=== PATIENT | male | born 1940 | race Caucasian/White ===

== ENCOUNTER 2017-07-30 14:03 | Outpatient (CLI) | payer MEDICARE ==
[2017-07-30 15:10] LABS: Hematocrit 43.2 % (42.0-52.0); Mean Platelet Volume 6.4 fL (7.4-10.4); Red Blood Cell (RBC) Count 4.56 mill/uL (4.70-6.10); White Blood Cell (WBC) Count 6.2 thou/uL (4.8-10.8)
[2017-07-30 15:17] LABS: PTT 27.6 SEC (22.9-36.1); Prothrombin Time 14.2 SEC (12.0-14.7)
[2017-07-30 15:37] LABS: Anion Gap 15 mmol/L (10-20); BUN (Urea Nitrogen) 14 mg/dL (8.4-25.7); Calc. Creatinine Clearance 0 mL/min (70-130); Calcium 10.1 mg/dL (7.8-10.44); Carbon Dioxide 29 mmol/L (23-31); Chloride 104 mmol/L (98-107); Estimated GFR-MDRD 84
== END 2017-07-30 14:04 | disposition home or self-care (01) ==
LOC: LABBT 14:03
PROVIDERS: ATTEND Internal Medicine Cardiovascular Disease
DX: Z01.818 Encounter for other preprocedural examination (principal); I48.91 Unspecified atrial fibrillation
CPT/HCPCS: 80048; 85027; 85610; 85730; 88121

== ENCOUNTER 2017-07-31 09:02 | Day surgery (SDC) | payer MEDICARE ==
[2017-07-30 14:15] VITALS: BMI 37.0
[2017-07-31] MEDS ORDERED: Propofol 1,000 MG/100 ML VIAL IV ONE (09:39)
[2017-07-31] MEDS ORDERED: Propofol 200 MG/20 ML VIAL ONE (09:47)
[2017-07-31] MEDS ORDERED: Atropine Sulfate 1 mg/10 ml Syringe ONE (09:59)
--- NOTE | 2017-07-31 14:07 | OP ---
DATE OF PROCEDURE: 07/31/2017 CARDIOVERSION REPORT REFERRING PHYSICIAN: Wild Choudhury MD REASON FOR PROCEDURE: Mr. Vitale is a 76-year-old man with history of bladder cancer, history of i nferior scar on nuclear stress test, mild reduced LVEF, diabetes, hyperlipidemia. He has persistent atrial fibrillation. He was started on amiodarone and on chronic Eliquis. The patient is here for cardioversion. PROCEDURE: The patient received propofol per anesthesia specialist. After adequate level of sedati on is achieved, 150 joules synchronized shock promptly converted the patient back to sinus rhythm. CONCLUSION: Successful cardioversion. PLAN: Continue Eliquis and amiodarone and observe symptoms. If symptomatic recurrence or weaning f rom amiodarone is desired, consider pulmonary venous isolation procedure.
--- NOTE | 2017-08-01 06:23 | EKG ---
Test Reason : POST CARDIOVERSION Blood Pressure : / mmHG Vent. Rate : 036 BPM Atrial Rate : 036 BPM P-R Int : 000 ms QRS Dur : 110 ms QT Int : 414 ms P-R-T Axes : 000 -63 -31 degrees QTc Int : 320 ms Atrial fibrillation with slow ventricular response Left anterior fascicular block Cannot rule out Inferior infarct (masked by fascicular block?) , age undetermined Abnormal ECG When compared with ECG of 17-APR-2017 12:58, Atrial fibrillation has replaced Atrial flutter Vent. rate has decreased BY 30 BPM Nonspecific T wave abnormality now evident in Inferior leads Nonspecific T wave abnormality now evident in Anterolateral leads QT has shortened Confirmed by ELVIN MCCORMICK ([id number]) on 08/01/2017 6:23:28 AM Referred By: ROOPA Confirmed By:ELVIN MCCORMICK
--- NOTE | 2017-08-01 06:23 | EKG ---
Test Reason : POST CARDIOVERSION Blood Pressure : / mmHG Vent. Rate : 068 BPM Atrial Rate : 068 BPM P-R Int : 238 ms QRS Dur : 110 ms QT Int : 446 ms P-R-T Axes : 031 -64 052 degrees QTc Int : 474 ms Sinus rhythm with 1st degree A-V block Questionable interruption of tracing V4, V5, V6, and rhythm leads V1, II, V3, vs Pause? Left anterior fascicular block Abnormal ECG When compared with ECG of 31-JUL-2017 09:59, (Unconfirmed) Sinus rhythm has replaced Atrial fibrillation Vent. rate has increased BY 32 BPM Nonspecific T wave abnormality no longer evident in Inferior leads Nonspecific T wave abnormality, improved in Anterolateral leads QT has lengthened Confirmed by ELVIN MCCORMICK ([id number]) on 08/01/2017 6:22:46 AM Referred By: ROOPA Confirmed By:ELVIN MCCORMICK
== END 2017-07-31 13:45 | disposition home or self-care (01) ==
LOC: CCL 09:02
PROVIDERS: ATTEND Internal Medicine Cardiovascular Disease
DX: I48.1 Persistent atrial fibrillation (principal); E11.9 Type 2 diabetes mellitus without complications; E78.5 Hyperlipidemia, unspecified; M10.9 Gout, unspecified; I51.9 Heart disease, unspecified; M54.9 Dorsalgia, unspecified; G89.29 Other chronic pain; Z79.84 Long term (current) use of oral hypoglycemic drugs; Z79.01 Long term (current) use of anticoagulants; Z79.899 Other long term (current) drug therapy; Z88.2 Allergy status to sulfonamides; Z88.8 Allergy status to other drugs, medicaments and biological substances; Z98.42 Cataract extraction status, left eye; Z98.41 Cataract extraction status, right eye; Z85.51 Personal history of malignant neoplasm of bladder
CPT/HCPCS: 92960; 93005; 93010; J0461; J2704

== ENCOUNTER 2018-04-21 09:31 | Outpatient (CLI) | payer MEDICARE, OTHER ==
[2018-04-21] MEDS ORDERED: ISOVUE-370 76%-LOCM 1 ML ONE (13:09)
== END 2018-04-21 09:32 | disposition home or self-care (01) ==
LOC: BICCT 09:31
PROVIDERS: ATTEND Urology
DX: C67.4 Malignant neoplasm of posterior wall of bladder (principal); I48.91 Unspecified atrial fibrillation; R91.1 Solitary pulmonary nodule
CPT/HCPCS: 74178

== ENCOUNTER 2018-09-09 09:16 | Outpatient (CLI) | payer MEDICARE ==
--- NOTE | 2018-09-09 11:20 | CT ---
CT VIEW CHEST WITHOUT CONTRAST: HISTORY: Nodule. COMPARISON: CT 04/21/2018. FINDINGS: There are extensive airspace opacities throughout the upper lobes. Some of these are ground-glass an d some of these are part solid. There are innumerable part solid and ground-glass nodules in the low er lobes. There is bronchial wall thickening. Involvement predominantly involves the right lung, somewhat greater than the left lung, although ther e is involvement throughout the left lung. The previously described small nodule in the right lung base has increased in size measuring approxim ately 8 mm, previously sub-4 mm. Multiple old left-sided rib fractures. No acute suspicious lytic or blastic lesion. IMPRESSION: 1. Marked increase in nodules throughout the lungs which are part solid with peripheral ground-glass concerning for hemorrhagic metastatic disease. Nodule in the right lung base has increased in size measuring 9 mm, previously 4 mm. The previously described 9 mm nodule in the right lung base is not as well defined due to the extensive ground-glass opacification of the lower lobe. 2. A normal hypodense mass in the left lobe of the thyroid for which a nonemergent ultrasound is rec ommended. 3. Mildly prominent perihilar and paratracheal lymph nodes may be metastatic in nature. PET CT may be beneficial. 4. If the patient the patient is currently on chemotherapy, chemotherapy-induced interstitial pneumo nitis is a possibility of the lung findings. Hypersensitivity pneumonitis is also within the differen tial although felt less likely. POS: [facility]
== END 2018-09-09 09:17 | disposition home or self-care (01) ==
LOC: BICCT 09:16
PROVIDERS: ATTEND Internal Medicine Critical Care Medicine
DX: R91.1 Solitary pulmonary nodule (principal); R91.8 Other nonspecific abnormal finding of lung field; E07.9 Disorder of thyroid, unspecified; C67.4 Malignant neoplasm of posterior wall of bladder; R31.0 Gross hematuria; I48.91 Unspecified atrial fibrillation
CPT/HCPCS: 36415; 71250; 81001; 82565; 87086

== ENCOUNTER 2018-09-15 13:50 | Outpatient (CLI) | payer MEDICARE ==
[~2018-09-15 13:50] MED LIST: ISOVUE-370 76%-LOCM 1 ML ONE
--- NOTE | 2018-09-15 16:37 | CT ---
CT ABDOMEN WITH AND WITHOUT CONTRAST PELVIC CT WITH AND WITHOUT CONTRAST 09/15/18 HISTORY: Hematuria. Bladder cancer. COMPARISON: 04/21/18, 02/24/17. FINDINGS: ABDOMEN CT: Multiple ground glass nodules and additional parenchymal opacities in the visualized lung bases. Refe r to chest CT from 09/09/18 for further detail. Heart size is normal. There are coronary artery calcifications. The visualized aorta has a normal sue iber. No periaortic fat stranding. Liver, spleen, pancreas, and right adrenal glands are unremarkable. Calcification of the right adrena l gland likely due to remote insult. Redemonstration of nodule associated with the left adrenal gland , measuring 1.9 cm with an attenuation coefficient of 19 Hounsfield units. The lesion is indeterminat e. No gastrohepatic, retrocrural or periportal lymphadenopathy. No mesenteric mass, lymphadenopathy, free air or free fluid. Left kidney is surgically absent. Extra-renal pelvis is noted on the right side. No evidence of a rig ht sided obstructive uropathy. Subcentimeter hypodensity in the right renal cortex cannot be further characterized. There is appropriate enhancement of the right kidney. No evidence of an enhancing liss d mass. There is appropriate excretion into a normal appearing intra and extrarenal collecting system . Limited evaluation of the alimentary canal by the lack of oral contrast. No evidence of bowel obstruc tion. Ileocecal junction is normal. Scattered fecal material in a nondistended, nondilated colon. occ asional diverticulum. No diverticulitis. CT PELVIS: Contrast opacifies the dependent portion of the urinary bladder which is unremarkable. No pelvic mass , lymphadenopathy, free air or free fluid. There are degenerative changes of the lumbar spine. IMPRESSION: 1. Multiple ground glass nodules in the lung bases. Refer to recent chest CT report for further detail. 2. No evidence of obstructive uropathy. 3. Left nephrectomy. 4. Redemonstration of a nodule associated with the left adrenal gland. Previous attenuation coef ficient suggests a benign adenoma. Currently, the attenuation coefficient is 14 to 15 Hounsfield unit s on the noncontrast series. Nonemergent evaluation with an abdomen MRI is recommended. Code T POS: [facility]
== END 2018-09-15 13:51 | disposition home or self-care (01) ==
LOC: BICCT 13:50
PROVIDERS: ATTEND Urology
DX: C67.4 Malignant neoplasm of posterior wall of bladder (principal); R31.0 Gross hematuria; R91.8 Other nonspecific abnormal finding of lung field; E27.9 Disorder of adrenal gland, unspecified; Z90.5 Acquired absence of kidney
CPT/HCPCS: 74178

== ENCOUNTER 2019-03-30 08:12 | Outpatient (CLI) | payer MEDICARE ==
[2019-03-30] MEDS ORDERED: Gadobenate Dimeglumine 529 MG/1 ML (20ML VIAL) ONE (09:00)
--- NOTE | 2019-03-30 10:19 | MRI ---
MRI LUMBAR SPINE: HISTORY: Low back pain which is worse in the past 5 weeks. Multiplanar, multisequence pre and postcontrast enhanced MRI images lumbar spine obtained. Comparison study is not available. FINDINGS: For the purposes of this dictation, the last freely mobile vertebral body will be considered to be th e L5 vertebral body. All other vertebral bodies are numbered according to this. T12-L1: Mild facet hypertrophy seen. The central canal and neural foramen are patent. L1-2: There is bilateral facet and ligamentum flavum hypertrophy. No significant degree of central or neural foraminal narrowing seen. L2-3: Disc desiccation seen. There is bilateral facet and ligamentum flavum hypertrophy. This results in mild central and lateral recess stenosis. The neural foramen demonstrate moderate bilateral narrowing. L3-4: Disc desiccation seen. There is bilateral facet and ligamentum flavum hypertrophy. This results in minimal central and lateral recess stenosis. Moderate bilateral neural foraminal narrowing seen. L4-5: Disc desiccation seen. There is severe facet and ligamentum flavum hypertrophy. Fluid seen in t he L4-5 facet joints. There is a severe central and lateral recess stenosis worse on the right than on the left. Moderate bilateral neural foraminal narrowing seen. L5-S1: Fusion of the disc seen at this level. The patient has had previous laminotomy changes. Postsu rgical scarring seen in the epidural space. No evidence of recurrent disc herniation seen. IMPRESSION: 1. Previous L5-S1 postsurgical changes. 2: Severe central spinal stenosis. Transcribed Date/Time: 03/30/2019 10:30 AM
== END 2019-03-30 08:13 | disposition home or self-care (01) ==
LOC: SCSMRI 08:12
PROVIDERS: ATTEND Family Medicine
DX: M54.5 Low back pain (principal); C67.4 Malignant neoplasm of posterior wall of bladder; M48.061 Spinal stenosis, lumbar region without neurogenic claudication; Z98.1 Arthrodesis status
CPT/HCPCS: 72158; 82565; A9577

== ENCOUNTER 2019-05-10 08:59 | Outpatient (CLI) | payer MEDICARE ==
--- NOTE | 2019-05-10 09:58 | CT ---
CHEST CT WITHOUT CONTRAST: Date: 05/10/19 COMPARISON: 09/09/2018 and 11/22/2016. HISTORY: Reevaluate pulmonary nodule. TECHNIQUE: Axial CT imaging at 3 mm intervals through the chest without contrast. Coronal reformatted imaging obtained. FINDINGS: The lack of contrast media limits assessment of the imaged viscera, vascular structures, and for lymp hadenopathy. Stable incompletely assessed heterogeneity of the left lobe of the thyroid gland noted with probable underlying hypodense nodules. Imaged upper abdomen demonstrates stable linear calcification in the region of the adrenal gland on the right. There is a stable adrenal nodule on the left measuring 1.4 cm, unchanged when compared to a CT examination of the abdomen and pelvis performed 03/06/2016. Scattered coronary arterial calcification present. There is no pneumothorax seen on either side. Upper lobe centrilobular emphysematous changes are present, similar when compared to the prior examin ation, right greater than left. The 09/09/2018 examination demonstrated multifocal groundglass nodularity throughout both lungs. On t his examination, there is minimal volume loss within the lingula. The lingula/left upper lobe is otherwise grossly unremarkable. There is minimal residual inferior linear interstitial density within the left lower lobe. No dominant pulmonary parenchymal mass lesion or nodule is noted within the left lower lobe. There is a pulmonary nodule within the right lower lobe, best seen on axial image 70, measuring appro ximately 9 mm in transverse dimension, stable when compared to the 09/09/2018 exam. This was not discretely visualized on the 11/22/2016 exam. There is no dominant pulmonary parenchymal mass lesion or nodule appreciated within the right middle lobe or the right upper lobe. Review of the osseous structures demonstrates stable scattered thoracic spine degenerative change. No worrisome lytic or blastic bone lesion is noted. Multiple old anterior left-sided rib fractures are noted. There is multifocal scattered atherosclerotic calcification of the coronary arteries. IMPRESSION: Interval marked improvement involving the previously noted bilateral pulmonary parenchymal opacities. There is a residual 8-9 mm right lower lobe pulmonary nodule for which follow-up CT examination in 6 months is suggested. Numerous additional incidental findings are noted, including a hypodensity wit hin the left lobe of the thyroid gland which is not well assessed on this examination. Recommend thyroid ultrasound for full assessment. CODE T Transcribed Date/Time: 05/10/2019 11:32 AM
== END 2019-05-10 09:00 | disposition home or self-care (01) ==
LOC: BICCT 08:59
PROVIDERS: ATTEND Internal Medicine Critical Care Medicine
DX: R91.1 Solitary pulmonary nodule (principal); R91.8 Other nonspecific abnormal finding of lung field
CPT/HCPCS: 71250

== ENCOUNTER 2019-10-13 07:54 | Outpatient (CLI) | payer MEDICARE ==
--- NOTE | 2019-10-13 10:37 | MRI ---
MRI thoracic spine noncontrast: DATE: 10/13/2019 HISTORY: 79-year-old male with neurogenic claudication. FINDINGS: There are multiple levels of mild and mild to moderate degenerative disc disease in the mid and lower thoracic spine. No vertebral body collapse. No bony retropulsion. No high-grade central spinal canal stenosis at any level. No extrinsic cord compression at any level. Moderate bilateral neural fo raminal stenosis at T11-12. No major bone marrow signal abnormality. IMPRESSION: 1. No cord compression. 2. Mild to moderate thoracic spondylosis.
--- NOTE | 2019-10-13 13:10 | CT ---
CT ABDOMEN AND PELVIS WITH AND WITHOUT IV CONTRAST: HISTORY: Low back pain and left nephrectomy after football injury. The patient also had back surgery, an appen dectomy and a bladder tumor removed. COMPARISON: 09/15/2018 FINDINGS: Mild chronic changes are again seen in the lung bases. No calcified gallstones are seen. The liver, s pleen and pancreas are normal. Calcification in the right adrenal gland is again noted and is likely due to remote insult. The approximately 2 cm left adrenal nodule is stable. No calculi are seen in the right kidney, right ureter or the urinary bladder. No right sided hydroureteronephrosis is seen. Post contrast images dem onstrate a small low density lesion in the anterior renal cortex, which is stable. The patient is pos t left nephrectomy. The 18 x 17 x 13 mm nodular density with internal calcification, in the region of the left renal pelvis is stable. Extrarenal right renal pelvis is again seen. No free air, free fluid or lymphadenopathy is noted in the abdomen or pelvis. There are vascular calc ifications without evidence of aneurysmal dilatation of the abdominal aorta. There are degenerative c hanges in the spine. IMPRESSION: Stable CT of the abdomen and pelvis since 09/15/2018. POS: [facility]
== END 2019-10-13 07:55 | disposition home or self-care (01) ==
LOC: BICMRI 07:54
PROVIDERS: ATTEND Physician Assistant Surgical
DX: M48.062 Spinal stenosis, lumbar region with neurogenic claudication (principal); M54.5 Low back pain; M79.604 Pain in right leg; M51.16 Intervertebral disc disorders with radiculopathy, lumbar region; M47.814 Spondylosis without myelopathy or radiculopathy, thoracic region
CPT/HCPCS: 72146; 74178; 82565

== ENCOUNTER 2019-11-10 07:02 | Outpatient (CLI) | payer MEDICARE ==
[2019-11-10 11:29] LABS: Hemoglobin 13.1 g/dL (14.0-18.0); Mean Corpuscular HGB CONC 33.4 g/dL (32.0-36.0); Mean Corpuscular Hemoglobin 31.2 pg (27.0-31.0); Mean Corpuscular Volume 93.6 fL (78.0-98.0); Mean Platelet Volume 6.7 fL (7.4-10.4); Platelet Count 243 thou/uL (130-400); RBC Distribution Width 12.4 % (11.5-14.5); Red Blood Cell (RBC) Count 4.19 mill/uL (4.70-6.10); White Blood Cell (WBC) Count 7.2 thou/uL (4.8-10.8)
[2019-11-10 11:33] LABS: INR-International Normal Ratio 1.5; PTT 29.4 SEC (22.9-36.1); Prothrombin Time 17.8 SEC (12.0-14.7)
[2019-11-10 11:45] LABS: Anion Gap 14 mmol/L (10-20); BUN (Urea Nitrogen) 16 mg/dL (8.4-25.7); Calc. Creatinine Clearance 0 mL/min (70-130); Calcium 9.7 mg/dL (7.8-10.44); Carbon Dioxide 27 mmol/L (23-31); Chloride 102 mmol/L (98-107); Estimated GFR-MDRD 84; Glucose 87 mg/dL (83-110); Potassium 5.1 mmol/L (3.5-5.1); Sodium 138 mmol/L (136-145)
--- NOTE | 2019-11-16 09:45 | EKG ---
Test Reason : Blood Pressure : / mmHG Vent. Rate : 070 BPM Atrial Rate : 070 BPM P-R Int : 188 ms QRS Dur : 114 ms QT Int : 384 ms P-R-T Axes : 008 -61 030 degrees QTc Int : 414 ms Normal sinus rhythm Left anterior fascicular block Possible Lateral infarct , age undetermined Abnormal ECG When compared with ECG of 31-JUL-2017 10:00, ME interval has decreased Borderline criteria for Lateral infarct are now Present QT has shortened Confirmed by ANDREAS CAGLE ([id number]) on 11/16/2019 9:45:13 AM Referred By: SILKE Confirmed By:ANDREAS CAGLE
== END 2019-11-10 07:03 | disposition home or self-care (01) ==
LOC: LABBT 07:02
PROVIDERS: ATTEND Surgery
DX: Z01.818 Encounter for other preprocedural examination (principal); M54.16 Radiculopathy, lumbar region; M48.061 Spinal stenosis, lumbar region without neurogenic claudication
CPT/HCPCS: 80048; 85027; 85610; 85730; 93005; 93010

== ENCOUNTER 2019-11-11 05:45 | Day surgery (SDC) | payer MEDICARE ==
[2019-11-10 09:37] VITALS: BMI 37.2
[2019-11-11] MEDS ORDERED: Thrombin 5000 UNITS/5 ML VIAL ONE (06:25)
[2019-11-11] MEDS ORDERED: Fentanyl 100 MCG/2 ML VIAL ONE ×3 (07:23→11:15)
[2019-11-11] MEDS ORDERED: Promethazine HCl 25 MG/ML VIAL SLOW IVP PRN (09:16)
[2019-11-11] MEDS ORDERED: HYDROmorphone 2 MG/ML VIAL SLOW IVP PRN (09:16)
[2019-11-11] MEDS ORDERED: PACU-Morphine 4MG/ML VIAL SLOW IVP PRN (09:16)
[2019-11-11] MEDS ORDERED: Ondansetron HCl/PF 4 MG/2 ML Vial IVP PRN (09:16)
[2019-11-11] MEDS ORDERED: Morphine Sulfate 2 MG/ML SYRINGE SLOW IVP PRN (09:16)
[2019-11-11] MEDS ORDERED: Promethazine HCl 25 MG/ML VIAL IM PRN (09:16)
[2019-11-11] MEDS ORDERED: Mag-Al 1200 mg/1200 mg/30 ML UDCUP PO PRN (11:11)
[2019-11-11] MEDS ORDERED: Morphine 2 MG/ML SYRINGE SLOW IVP PRN (11:11)
[2019-11-11] MEDS ORDERED: Acetaminophen/Codeine 30-300mg Tablet PO PRN (11:11)
[2019-11-11] MEDS ORDERED: Acetaminophen 325 MG TAB PO PRN (11:11)
[2019-11-11] MEDS ORDERED: Milk Of Magnesia 30 ML UDCUP PO PRN (11:11)
[2019-11-11] MEDS ORDERED: Fleet Enema 133 ML BOT PR PRN (11:11)
[2019-11-11] MEDS ORDERED: Bisacodyl 10 MG SUPP PR PRN (11:11)
[2019-11-11] MEDS ORDERED: traMADol HCl 50 MG TAB PO PRN (11:11)
[2019-11-11] MEDS ORDERED: Morphine 4 MG/ML VIAL ONE (11:32)
--- NOTE | 2019-11-11 11:42 | OP ---
DATE OF PROCEDURE: 11/11/2019 LOCATION: OR 11. WOUND CLASSIFICATION: Type 1 wound. [employer] MACHINE TENDER: Krys Hamilton PA-C. PREPROCEDURE DIAGNOSIS: Lumbar stenosis with low back and leg pain. POSTPROCEDURE DIAGNOSIS: Lumbar stenosis with low back and leg pain. PROCEDURE PERFORMED: L4-L5 laminectomy, partial facetectomy, and foraminotomy. DESCRIPTION OF PROCEDURE: After informed consent was obtained from the patient, the patient was brought to the OR. Proper patient, pause, and identification were carried out. He was placed under excellent general endotracheal anesthesia and positioned prone on the OR table. All appropriate points were padded. We identified the L4-L5 dorsal spines. A linear radha was made. This used a portion of his prior L5-S1 fusion wound, it was done in the past. We then sterilely cleansed, prepared, and draped the wound. Proper patient, pause, and identification were carried out. The wound was then opened with a combination of sharp, monopolar, and blunt dissection. The L4-L5 dorsal spines and lamina were exposed. Localization film confirmed our area of interest. We then performed an L4-L5 laminectomy, partial facetectomy, foraminotomies, had excellent decompression of common dural tube and nerve roots. There was no CSF leak. We were very pleased with the decompression. Copious irrigation occurred throughout as did maximizing hemostasis. The wound was then closed in anatomic layers following sprinkling of vancomycin powder. The patient then emerged from anesthesia. Job ID: [id number]
[2019-11-11] MEDS ORDERED: Morphine 2 MG/ML SYRINGE ONE (12:09)
[2019-11-11] MEDS ORDERED: Fesoterodine Fumarate [Toviaz] 8 MG PO PRN (12:30)
[2019-11-11] MEDS: tiZANidine HCl 4 MG TAB PO PRN (13:15)
[2019-11-11] MEDS: CEFAZOLIN 2 GM in Premix Bag 1 BAG IVPB SCH ×2 (13:20→21:01)
[2019-11-11] MEDS: Sodium Chloride 0.9% 1,000 ML IV SCH (13:20)
[2019-11-11] MEDS ORDERED: Lidocaine 1% PF 5 ML VIAL ONE (14:52)
[2019-11-11] MEDS ORDERED: Glycopyrrolate 0.2 MG/ML 5 ML SYRINGE ONE (14:52)
[2019-11-11] MEDS ORDERED: Ondansetron PF 4 MG/2 ML Vial ONE (14:52)
[2019-11-11] MEDS ORDERED: Metoclopramide HCl 10 MG/2 ML VIAL ONE (14:52)
[2019-11-11] MEDS ORDERED: ePHEDrine/0.9% NaCl/PF SYRINGE 50 mg/10 ml ONE (14:52)
[2019-11-11] MEDS ORDERED: PROPOFOL 200 MG/20 ML VIAL ONE (14:52)
[2019-11-11] MEDS ORDERED: Rocuronium Bromide 10 MG/ML (10ML VIAL) ONE (14:52)
[2019-11-11] MEDS: metFORMIN 500 MG TAB PO SCH (16:23)
[2019-11-11] MEDS: HYDROcodone/Acetaminophen 7.5/325 mg Tablet PO PRN (21:00)
[2019-11-11] MEDS ORDERED: Atorvastatin Calcium 20 MG TAB PO SCH (21:00)
[2019-11-11] MEDS ORDERED: Gabapentin 100 MG CAP PO SCH (21:00)
[2019-11-12] MEDS: Sodium Chloride 0.9% 1,000 ML IV SCH (01:44)
[2019-11-12] MEDS: HYDROcodone/Acetaminophen 7.5/325 mg Tablet PO PRN ×3 (04:08→13:09)
[2019-11-12] MEDS: tiZANidine HCl 4 MG TAB PO PRN (04:09)
[2019-11-12] MEDS: metFORMIN 500 MG TAB PO SCH (07:54)
[2019-11-12] MEDS ORDERED: Allopurinol 100 MG TAB PO SCH (09:00)
[2019-11-12] MEDS ORDERED: Amiodarone 200 MG TAB PO SCH (09:00)
--- NOTE | 2019-11-12 10:40 | PRG ---
DATE OF SERVICE: 11/12/2019 Mr. Vitale is postoperative day 1 from L4-L5 laminectomy. He has improvement in his right leg pain, although does endorse some right groin pain and right knee pain, but overall he feels as if it is improved. He does have incisional pain. We will remove his bladder catheter to see if he can void, if he can, then we will measure a postvoid residual. If it is sufficiently low, we will allow him to go home without a bladder catheter. If he has high postvoid residual or is not able to pee, then we will plan for replacement of an indwelling Marte catheter and he will follow up with Dr. Summers next week. I have already discussed this with Dr. Summers. Job ID: [id number]
[2019-11-12 13:03] VITALS: BP 155/62; TEMP 98.5
== END 2019-11-12 13:27 | disposition home or self-care (01) ==
LOC: SDC 05:45 → SURG A 11:18 → SDC 11-12 13:27
PROVIDERS: ATTEND Surgery
PROC: 01NB0ZZ Release Lumbar Nerve, Open Approach (ICD-10-PCS; principal; 2019-11-11)
DX: M48.061 Spinal stenosis, lumbar region without neurogenic claudication (principal); M54.16 Radiculopathy, lumbar region; E11.9 Type 2 diabetes mellitus without complications; Z79.01 Long term (current) use of anticoagulants; Z79.84 Long term (current) use of oral hypoglycemic drugs; Z79.899 Other long term (current) drug therapy; Z88.2 Allergy status to sulfonamides; Z88.8 Allergy status to other drugs, medicaments and biological substances; Z90.5 Acquired absence of kidney; Z98.1 Arthrodesis status
CPT/HCPCS: 76000; J0690; J2001; J2270; J2405; J2704; J2765; J3010; J3370; J3490

== ENCOUNTER 2019-12-24 12:39 | Outpatient (CLI) | payer MEDICARE ==
--- NOTE | 2019-12-24 14:14 | MRI ---
MRI CERVICAL SPINE WITHOUT CONTRAST: 12/24/19 INDICATIONS: Neck pain. Shoulder and arm pain. Cervical vertebrae maintain height and alignment. Vertebral body signal appears normal. There are deg enerative spine changes noted. Spurring from the cervical vertebrae. Degenerative disc changes with l oss of disc space at C5-6. Slight posterolisthesis at C5-6 measured at 3 mm. C2-3: No significant abnormality. C3-4: Mild disc bulge. Small annular fissure. Mild effacement of the anterior subarachnoid space. No cord impingement. Left foraminal stenosis due to facet and uncinate hypertrophy. C4-5: Posterior disc bulge and spondylosis flatten the thecal sac and abut the anterior cord. Mild bi lateral foraminal narrowing due to facet and uncinate hypertrophy. C5-6: Mild posterolisthesis as noted above. Posterior disc bulge and spondylosis abut the anterior co rd. Bilateral foraminal stenosis more severe on the right due to hypertrophic change. C6-7: Mild disc bulge and spondylosis. Anterior subarachnoid space is preserved. There is a disc oste ophyte complex projecting paracentrally on the left best seen on axial images which does efface the a nterior subarachnoid space. No significant cord impingement seen. No evidence of significant foramina l stenosis. The cervical cord signal appears normally maintained. IMPRESSION:[ Posterior disc and spondylitic changes noted at C3-4, C4-5, C5-6 and C6-7 levels as described above. POS: [facility]
== END 2019-12-24 12:40 | disposition home or self-care (01) ==
LOC: TBSIIMAG 12:39
PROVIDERS: ATTEND Surgery
DX: M54.2 Cervicalgia (principal); M50.91 Cervical disc disorder, unspecified, high cervical region
CPT/HCPCS: 72141

== ENCOUNTER 2020-03-30 09:38 | Outpatient (CLI) | payer MEDICARE ==
--- NOTE | 2020-03-30 12:10 | MRI ---
MRI LUMBAR SPINE NONCONTRAST: DATE: 03/30/2020 HISTORY: 79-year-old male with low back pain COMPARISON: 03/30/2019 FINDINGS: 5 lumbar-type vertebrae. Vertebral body heights are maintained. New patchy focus of approximately 2 x 2 centimeter region of T1 hypointense and T2 hyperintense bone marrow signal involving the right anterior aspect of the L5 vertebral body. Only a portion of this abuts the adjacent disc space. Furth ermore, there is edema in the adjacent portion of the right prevertebral space (best visualized on STIR sagittal sequence), suggestive of inflammatory or infectious process in this location. However, there is no high-grade T2-hyperintense signal in the adjacent L4-5 intervertebral disc space (no evidence of discitis). There is no other region of bone marrow edema elsewhere. Mild old anterior wedge compression fracture deformity of L2 vertebral body, slightly progressed sinc e the prior MRI, with no associated bone marrow edema. There is ankylosis between the L5 and S1 vertebral bodies across the disc space. There is mild disc space narrowing at other levels, but no se felipe disc space narrowing otherwise. T11-12: Severe right neural foraminal stenosis. Moderate to severe left neural foraminal stenosis. Ri ght far lateral, neural foraminal small disc herniation. Bilateral facet DJD. No central stenosis.. T12-L1:No central stenosis. No high-grade neural foraminal stenosis. L1-2:Minimal disc bulge. No high-grade central spinal canal stenosis. Mild bilateral neural foraminal stenosis. Conus medullaris terminates at L2. L2-3:Mild disc bulge. Minimal retrolisthesis of L2 on L3. Mild central spinal canal stenosis. Posteri or epidural fat pad. Mild to moderate thecal sac stenosis. Mild right neural foraminal stenosis. Mild to moderate left neural foraminal stenosis. L3-4:Mild to moderate disc bulge. Mild bilateral neural foraminal stenosis. Mild bilateral facet DJD. Mild central spinal canal stenosis. L4-5:Severe bilateral facet DJD, including prominent bilateral facet osteophytes and bilateral facet joint effusions. Moderate diffuse disc bulge. Moderate right neural foraminal stenosis. Mild to moderate left neural foraminal stenosis. New midline laminectomy defect results in interval increase in caliber of thecal sac, with no central spinal canal stenosis. Abutting the dorsal surface of the thecal sac, there is a new approximately 2 x 2 x 3 cm multi septated retrospinal fluid collection. Lo cated a distance of approximately 3 to 4 cm dorsal to that, at midline in the region of the dorsal lumbar fascia, there is another fluid collection in the soft tissues measuring approximately 1 x 1 x 3.5 cm, extending from the L3-4 to L5 levels. This is surrounded by edema in the soft tissues. L5-S1:Spinal canal and thecal sac generous in caliber as previously demonstrated. Probable bilateral old hemilaminectomy defects. Ankylosis across disc space. No significant neural foraminal stenosis. Moderate bilateral facet DJD. IMPRESSION: 1) new decompressive laminectomy at L4-5 since prior MRI. New postoperative fluid collection posterio r to spinal canal at this level. Depending on when the surgery occurred, possibilities include postoperative pseudomeningocele versus seroma versus resolving hematoma. 2) Approximately 3 to 4 cm posterior to that, there is a second, more superficial postoperative fluid collection, which could be a seroma/hematoma, or abscess. 3) new focal patchy bone marrow signal abnormality at the right anterior aspect of the L5 vertebral b honorio, with adjacent edema in the right anterior prevertebral space, suggestive of a nonspecific inflammatory or infectious process. 4) no high-grade central spinal canal stenosis at any level. 5) neural foraminal stenosis of varying degrees, especially on the right at T11-12, L3-4, and L4-5. 6) severe bilateral facet arthrosis at L4-5. 6) old ankylosis between the endplates across the L5-S1 disc space.
--- NOTE | 2020-03-30 13:38 | RAD ---
LUMBAR SPINE: 03/30/20 Four views. HISTORY: Back pain. FINDINGS: Mild anterior wedging of the L2 vertebra. Moderate osteophytes. Fusion at L5-S1. The other disc space s are preserved. Prominent facet hypertrophy. Slight curvature to the right in the AP projection with apex at L2-3. IMPRESSION: Moderate degenerative changes of the lumbar spine. Slight wedging of L2 appears chronic. POS: [facility]
== END 2020-03-30 09:39 | disposition home or self-care (01) ==
LOC: BICMRI 09:38
PROVIDERS: ATTEND Surgery
DX: M54.5 Low back pain (principal); R29.6 Repeated falls; M62.81 Muscle weakness (generalized); M47.816 Spondylosis without myelopathy or radiculopathy, lumbar region; M48.56XA Collapsed vertebra, not elsewhere classified, lumbar region, initial encounter for fracture; M43.27 Fusion of spine, lumbosacral region; M48.061 Spinal stenosis, lumbar region without neurogenic claudication; M48.04 Spinal stenosis, thoracic region; R60.0 Localized edema; Z98.890 Other specified postprocedural states
CPT/HCPCS: 72110; 72148

== ENCOUNTER 2020-05-08 10:02 | Outpatient (CLI) | payer MEDICARE ==
--- NOTE | 2020-05-08 12:13 | CT ---
CHEST CT SCAN WITHOUT IV CONTRAST: History Followup pulmonary nodule. COMPARISON: 05/10/2019. FINDINGS: Stable left thyroid nodule containing some calcifications when compared to most recent prior study . Bilateral minimal bullous emphysema changes and linear and interstitial and pleural-based parenchymal changes, evidence for stable chronic change. 0.5 x 0.7 cm stable lateral right lower lobe subpleura l nodule. Three-vessel coronary artery calcific disease. Stable left adrenal nodule. IMPRESSION: 0.5 x 0.7 cm diameter stable lateral right lower lobe subpleural nodule. Suggest annual followup exam. Other findings as above, stable. POS: [facility]
== END 2020-05-08 10:03 | disposition home or self-care (01) ==
LOC: BICCT 10:02
PROVIDERS: ATTEND Internal Medicine Critical Care Medicine
DX: R91.1 Solitary pulmonary nodule (principal); I25.10 Atherosclerotic heart disease of native coronary artery without angina pectoris; J43.9 Emphysema, unspecified; E27.8 Other specified disorders of adrenal gland; E04.1 Nontoxic single thyroid nodule; E07.89 Other specified disorders of thyroid
CPT/HCPCS: 71250

== ENCOUNTER 2021-05-08 10:00 | Outpatient (CLI) | payer MEDICARE | END 2021-05-08 10:01 | disposition home or self-care (01) | LOC: BICCT 10:00 | PROVIDERS: ATTEND Internal Medicine Critical Care Medicine | DX: R91.1 Solitary pulmonary nodule (principal); J98.4 Other disorders of lung | CPT/HCPCS: 71250 ==

== ENCOUNTER 2022-04-17 08:09 | Outpatient (CLI) | payer MEDICARE ==
[2022-04-17 09:44] LABS: Hemoglobin 13.9 g/dL (13.5-17.5); Mean Corpuscular HGB CONC 32.8 g/dL (32.0-36.0); Mean Corpuscular Hemoglobin 30.8 pg (27.0-33.0); Mean Platelet Volume 9.4 fl (7.4-10.4); Platelet Count 198 10x3/uL (150-450); RBC Distribution Width 13.7 % (11.5-14.5); Red Blood Cell (RBC) Count 4.51 10x6/uL (4.32-5.72); White Blood Cell (WBC) Count 5.3 10x3/uL (3.5-10.5)
[2022-04-17 09:45] LABS: Bilirubin Neg (Negative); Blood, Urine 10 (Negative); Clarity Clear (Clear); Glucose, Urine (Dipstick) Normal (Negative); Ketone, Urine Negative (Negative); Leukocyte Negative (Negative); Nitrite Negative (Negative); Protein, Urine (Dipstick) 15 mg/dl (Neg-Trace)
[2022-04-17 10:06] LABS: ALT (SGPT) 14 U/L (8-55); AST (SGOT) 13 U/L (5-34); Albumin 4.4 g/dL (3.4-4.8); Alkaline Phosphatase 58 U/L (40-110); Anion Gap 16 mmol/L (10-20); BUN (Urea Nitrogen) 14 mg/dL (8.4-25.7); Bilirubin, Total 0.6 mg/dL (0.2-1.2); Calc. Creatinine Clearance 0 mL/min (70-130); Calcium 9.6 mg/dL (7.8-10.44); Carbon Dioxide 27 mmol/L (23-31); Chloride 104 mmol/L (98-107); Globulin 2.3 g/dL (2.4-3.5); Glucose 128 mg/dL (83-110); Potassium 4.9 mmol/L (3.5-5.1); Protein, Total 6.7 g/dL (5.8-8.1); Sodium 142 mmol/L (136-145)
[2022-04-17 10:10] LABS: INR-International Normal Ratio 1.9; PTT 32.3 sec (22.0-33.0); Prothrombin Time 20.2 sec (9.5-12.1)
== END 2022-04-17 08:10 | disposition home or self-care (01) ==
LOC: LABBT 08:09
PROVIDERS: ATTEND Internal Medicine Cardiovascular Disease
DX: Z01.812 Encounter for preprocedural laboratory examination (principal); I48.19 Other persistent atrial fibrillation; Z20.822 Contact with and (suspected) exposure to COVID-19
CPT/HCPCS: 80053; 81003; 85027; 85610; 85730; 86850; 86900; 86901; 86920; U0003; U0005

== ENCOUNTER 2022-04-17 08:30 | Inpatient (IN) | payer MEDICARE ==
[2022-04-17 09:44] LABS: Hemoglobin 13.9 g/dL (13.5-17.5); Mean Corpuscular HGB CONC 32.8 g/dL (32.0-36.0); Mean Corpuscular Hemoglobin 30.8 pg (27.0-33.0); Mean Platelet Volume 9.4 fl (7.4-10.4); Platelet Count 198 10x3/uL (150-450); RBC Distribution Width 13.7 % (11.5-14.5); Red Blood Cell (RBC) Count 4.51 10x6/uL (4.32-5.72); White Blood Cell (WBC) Count 5.3 10x3/uL (3.5-10.5)
[2022-04-17 09:45] LABS: Bilirubin Neg (Negative); Blood, Urine 10 (Negative); Clarity Clear (Clear); Glucose, Urine (Dipstick) Normal (Negative); Ketone, Urine Negative (Negative); Leukocyte Negative (Negative); Nitrite Negative (Negative); Protein, Urine (Dipstick) 15 mg/dl (Neg-Trace)
[2022-04-17 10:06] LABS: ALT (SGPT) 14 U/L (8-55); AST (SGOT) 13 U/L (5-34); Albumin 4.4 g/dL (3.4-4.8); Alkaline Phosphatase 58 U/L (40-110); Anion Gap 16 mmol/L (10-20); BUN (Urea Nitrogen) 14 mg/dL (8.4-25.7); Bilirubin, Total 0.6 mg/dL (0.2-1.2); Calc. Creatinine Clearance 0 mL/min (70-130); Calcium 9.6 mg/dL (7.8-10.44); Carbon Dioxide 27 mmol/L (23-31); Chloride 104 mmol/L (98-107); Globulin 2.3 g/dL (2.4-3.5); Glucose 128 mg/dL (83-110); Potassium 4.9 mmol/L (3.5-5.1); Protein, Total 6.7 g/dL (5.8-8.1); Sodium 142 mmol/L (136-145)
[2022-04-17 10:10] LABS: INR-International Normal Ratio 1.9; PTT 32.3 sec (22.0-33.0); Prothrombin Time 20.2 sec (9.5-12.1)
[2022-04-18 12:03] VITALS: BMI 37.3
[2022-04-22] MEDS ORDERED: Heparin 10,000 UNITS/ 10 ML VIAL ONE (06:36)
[2022-04-22] MEDS ORDERED: CEFAZOLIN 1 GM VIAL ONE (06:36)
[2022-04-22] MEDS ORDERED: Ondansetron PF 4 MG/2 ML Vial ONE (07:41)
[2022-04-22] MEDS ORDERED: Lidocaine 1% PF 5 ML VIAL ONE (07:41)
[2022-04-22] MEDS ORDERED: Ketorolac Tromethamine 30 MG/ML VIAL ONE (07:41)
[2022-04-22] MEDS ORDERED: Rocuronium Bromide 10 MG/ML (10ML VIAL) ONE (07:41)
[2022-04-22] MEDS ORDERED: PROPOFOL 200 MG/20 ML VIAL ONE (07:41)
[2022-04-22] MEDS ORDERED: Glycopyrrolate 0.2 MG/ML 5 ML SYRINGE ONE (07:41)
[2022-04-22] MEDS ORDERED: Protamine Sulfate 50 MG/5 ML VIAL ONE (08:54)
[2022-04-22] MEDS ORDERED: SUGAMMADEX SODIUM 200 MG/2 ML VIAL ONE (08:59)
[2022-04-22] MEDS ORDERED: Iopamidol 370 76% 100 ML VIAL ONE (13:45)
== END 2022-04-22 14:25 | disposition home or self-care (01) | DRG 274 ==
LOC: SURG A 04-22 05:46
PROVIDERS: ADMIT Internal Medicine Cardiovascular Disease; ATTEND Internal Medicine Cardiovascular Disease
PROC: 02L73DK Occlusion of Left Atrial Appendage with Intraluminal Device, Percutaneous Approach (ICD-10-PCS; principal; 2022-04-22)
PROC: B24BZZ4 Ultrasonography of Heart with Aorta, Transesophageal (ICD-10-PCS; 2022-04-22)
DX: I48.19 Other persistent atrial fibrillation (principal); Z00.6 Encounter for examination for normal comparison and control in clinical research program; Z20.822 Contact with and (suspected) exposure to COVID-19; I10 Essential (primary) hypertension; E11.40 Type 2 diabetes mellitus with diabetic neuropathy, unspecified; I48.92 Unspecified atrial flutter; N40.0 Benign prostatic hyperplasia without lower urinary tract symptoms; M10.9 Gout, unspecified; I08.1 Rheumatic disorders of both mitral and tricuspid valves; E78.5 Hyperlipidemia, unspecified; I45.10 Unspecified right bundle-branch block; Z79.01 Long term (current) use of anticoagulants; Z85.51 Personal history of malignant neoplasm of bladder; Z87.891 Personal history of nicotine dependence; Z90.49 Acquired absence of other specified parts of digestive tract; Z98.890 Other specified postprocedural states; Z90.09 Acquired absence of other part of head and neck; Z88.2 Allergy status to sulfonamides; Z88.8 Allergy status to other drugs, medicaments and biological substances
CPT/HCPCS: 33340; 80053; 81003; 85027; 85347; 85610; 85730; 86850; 86900; 86901; 93005; 93010; 93306; 93312; C1759; C1760; J0690; J1644; J1885; J2405; J2704; J2720; Q9967; U0003; U0005

== ENCOUNTER 2022-06-10 08:44 | Outpatient (CLI) | payer MEDICARE ==
[2022-06-10 10:23] LABS: Hemoglobin 13.7 g/dL (13.5-17.5); Mean Corpuscular HGB CONC 32.7 g/dL (32.0-36.0); Mean Corpuscular Hemoglobin 31.3 pg (27.0-33.0); Mean Corpuscular Volume 95.7 fl (81.2-95.1); Mean Platelet Volume 9.5 fl (7.4-10.4); Platelet Count 228 10x3/uL (150-450); RBC Distribution Width 13.8 % (11.5-14.5); Red Blood Cell (RBC) Count 4.38 10x6/uL (4.32-5.72); White Blood Cell (WBC) Count 5.1 10x3/uL (3.5-10.5)
[2022-06-10 10:48] LABS: Anion Gap 17 mmol/L (10-20); BUN (Urea Nitrogen) 17 mg/dL (8.4-25.7); Calc. Creatinine Clearance 0 mL/min (70-130); Calcium 9.9 mg/dL (7.8-10.44); Carbon Dioxide 25 mmol/L (23-31); Chloride 104 mmol/L (98-107); Estimated GFR 73; Glucose 120 mg/dL (83-110); Potassium 5.5 mmol/L (3.5-5.1); Sodium 140 mmol/L (136-145)
== END 2022-06-10 08:45 | disposition home or self-care (01) ==
LOC: LABBT 08:44
PROVIDERS: ATTEND Internal Medicine Cardiovascular Disease
DX: Z01.812 Encounter for preprocedural laboratory examination (principal); Z20.822 Contact with and (suspected) exposure to COVID-19
CPT/HCPCS: 80048; 85027; 87811

== ENCOUNTER 2022-06-14 06:10 | Day surgery (SDC) | payer MEDICARE ==
[2022-06-12 14:34] VITALS: BMI 37.3
[2022-06-14] MEDS ORDERED: Ketamine 50 MG/ML (10ML VIAL) ONE (07:10)
[2022-06-14] MEDS ORDERED: ePHEDrine 50 MG/ML VIAL ONE (08:52)
[2022-06-14] MEDS ORDERED: PROPOFOL 200 MG/20 ML VIAL ONE (08:52)
[2022-06-14 10:04] LABS: Anion Gap 15 mmol/L (10-20); BUN (Urea Nitrogen) 24 mg/dL (8.4-25.7); Calc. Creatinine Clearance 74 mL/min (70-130); Calcium 9.6 mg/dL (7.8-10.44); Carbon Dioxide 24 mmol/L (23-31); Chloride 109 mmol/L (98-107); Estimated GFR 57; Glucose 102 mg/dL (83-110); Potassium 5.5 mmol/L (3.5-5.1); Sodium 142 mmol/L (136-145)
[2022-06-15] MEDS ORDERED: Clopidogrel Bisulfate 75 MG TAB PO SCH (09:00)
[2022-06-15] MEDS ORDERED: Aspirin 81 mg Enteric Coated Tablet PO SCH (09:00)
== END 2022-06-14 10:05 | disposition home or self-care (01) ==
LOC: SDC 06:10
PROVIDERS: ATTEND Internal Medicine Cardiovascular Disease
PROC: B24BZZ4 Ultrasonography of Heart with Aorta, Transesophageal (ICD-10-PCS; principal; 2022-06-14)
DX: I48.19 Other persistent atrial fibrillation (principal); I08.1 Rheumatic disorders of both mitral and tricuspid valves; I45.10 Unspecified right bundle-branch block; I10 Essential (primary) hypertension; E11.9 Type 2 diabetes mellitus without complications; E78.5 Hyperlipidemia, unspecified; M10.9 Gout, unspecified; Z79.84 Long term (current) use of oral hypoglycemic drugs; Z79.899 Other long term (current) drug therapy; Z88.2 Allergy status to sulfonamides; Z88.8 Allergy status to other drugs, medicaments and biological substances; Z87.891 Personal history of nicotine dependence; Z91.81 History of falling
CPT/HCPCS: 36415; 80048; 93312

== ENCOUNTER 2024-01-20 13:38 | Outpatient (CLI) | payer MEDICARE | END 2024-01-20 13:39 | disposition home or self-care (01) | LOC: BICCT 13:38 | PROVIDERS: ATTEND Family Medicine | DX: M54.50 Low back pain, unspecified (principal); M47.816 Spondylosis without myelopathy or radiculopathy, lumbar region; M84.48XA Pathological fracture, other site, initial encounter for fracture; S70.02XA Contusion of left hip, initial encounter | CPT/HCPCS: 72131 ==

== ENCOUNTER 2025-07-28 08:43 | Outpatient (CLI) | payer MEDICARE | END 2025-07-28 08:44 | disposition home or self-care (01) | LOC: BICCT 08:43 | PROVIDERS: ATTEND Family Medicine | DX: M25.552 Pain in left hip (principal); S76.012A Strain of muscle, fascia and tendon of left hip, initial encounter; M61.551 Other ossification of muscle, right thigh; M62.552 Muscle wasting and atrophy, not elsewhere classified, left thigh; M48.061 Spinal stenosis, lumbar region without neurogenic claudication; M48.07 Spinal stenosis, lumbosacral region | CPT/HCPCS: 72131 ==